=== PATIENT | male | born 1965 | race Caucasian/White ===

== ENCOUNTER 2016-06-05 14:19 | Emergency (ER) | payer SELFPAY | END 2016-06-05 14:25 | disposition home or self-care (01) | LOC: ER 14:19 | DX: S20.211A Contusion of right front wall of thorax, initial encounter (principal); F17.200 Nicotine dependence, unspecified, uncomplicated; J45.909 Unspecified asthma, uncomplicated; W19.XXXA Unspecified fall, initial encounter | CPT/HCPCS: 71100-RT; 99284 ==